=== PATIENT | female | born 1980 | race Caucasian/White ===

== ENCOUNTER → 2020-01-05 | Outpatient (CLI) | payer OTHER ==
[~2020-01-05] VITALS: Ht 165.1 cm; Wt 74.8 kg
[~2020-01-05] MED LIST: AEROECLIPSE1 EACH MC; ALBUTEROL2.5 MG/0.5 IH; ALBUTEROL2.5 MG/31 INH; ALPRAZOLAM 0.50.5 MG PO; ATENOLOL 50MG T50 M1 PO; BYSTOLIC 5 MG5 M1; CARAFATE 1 GM TA1 G1 PO; CELEXA40 MG PO; CHLORZOXAZONE500 MG PO; CYMBALTA30 MG PO; DICLOFENAC SODI75 MG PO; DILAUDID 2 MG TA2 MG PO; DIOVAN40 MG PO; DOXYCYCLINE 10100 MG PO; DULERA 200 MCG/13 GM; FLEXERIL PO; GABAPENTIN 100100 MG PO; IMITREX100 MG PO; LOSARTAN POTAS100 MG PO; LOSARTAN-HCTZ1 EAC3 PO; MEDROLDOSEPACK PO; MUCINEX DM TABL1 TA1 PO; MULTIVITAMINS1 EAC7 PO; NORCO 5-325 TA1 EAC1 PO; NORVASC5 MG PO; OMEPRAZOLE 20 M20 M1; OXYCONTIN10 M1; PREDNISONE 20 M20 M1 PO; PROAIR HFA8.5 GM INH; PROAIR HFA8.5 GM PO; PROCARE1 EACH MC; PROTONIX40 M1 PO; ROBAXIN 750 MG750 M1 PO; SENOKOT-S1 TA2 PO; SYNTHROID150 MCG PO; TESSALON PERLE100 M1 PO; TRAZODONE HCL50 MG PO; TUSSIONEX PENN473 ML PO; VENTOLIN HFA 1818 GM; VERAPAMIL ER240 M1 PO; ZANAFLEX4 MG; ZOLOFT50 MG PO; ZPAK PO; ZYRTEC10 M2
[2020-01-05 08:40] VITALS: BP 116/62
[2020-01-05 09:01] LABS: HEMATOCRIT 46.3 % (37.0-47.0); HEMOGLOBIN 15.6 gm/dL (12.0-15.0); MCH 29.7 pg (26.0-34.0); MCHC 33.7 g/dL (28.0-37.0); MCV 88.1 fL (80.0-100.0); MPV 7.3 fl. (7.2-11.1); RBC 5.26 mil/uL (4.20-5.00); RDW-CV 13.5 % (10.5-14.5); WBC 8.7 thou/uL (4.0-11.0)
[2020-01-05 09:11] LABS: CALCIUM 9.4 mg/dL (8.5-10.1); CREATININE 0.7 mg/dL (0.6-1.3); POTASSIUM 4.4 mmol/L (3.5-5.1)
[2020-01-05 09:13] LABS: PROTIME 10.4 Seconds (9.20-11.50)
[2020-01-05 10:35] VITALS: BP 100/55
[2020-01-05 10:49] VITALS: BP 103/54
[2020-01-05 11:06] VITALS: BP 97/52
--- NOTE | 2020-01-06 13:09 | NUR ---
Patient came in today and received a pain prescription from Dr. Babin and no area of infection noted.
== END | disposition home or self-care (01) ==
LOC: M.INT 08:04
PROVIDERS: Radiology Diagnostic Radiology; ATTEND Internal Medicine Hematology & Oncology
DX: Z45.2 Encounter for adjustment and management of vascular access device (principal); C34.90 Malignant neoplasm of unspecified part of unspecified bronchus or lung; I10 Essential (primary) hypertension; E78.00 Pure hypercholesterolemia, unspecified; J45.909 Unspecified asthma, uncomplicated; G43.909 Migraine, unspecified, not intractable, without status migrainosus; F32.9 Major depressive disorder, single episode, unspecified; F41.9 Anxiety disorder, unspecified; F17.210 Nicotine dependence, cigarettes, uncomplicated; Z98.890 Other specified postprocedural states; Z11.59 Encounter for screening for other viral diseases; Z79.899 Other long term (current) drug therapy; Z98.84 Bariatric surgery status; Z85.850 Personal history of malignant neoplasm of thyroid; Z86.2 Personal history of diseases of the blood and blood-forming organs and certain disorders involving the immune mechanism; Z87.442 Personal history of urinary calculi; Z88.2 Allergy status to sulfonamides; Z88.8 Allergy status to other drugs, medicaments and biological substances

== ENCOUNTER 2020-06-15 14:01 | Emergency (ER) | payer OTHER ==
[~2020-06-15] VITALS: Ht 167.6 cm; Wt 90.7 kg
[2020-06-15] MEDS ORDERED: ATIVAN1 M1 PO (14:14)
[2020-06-15] MEDS ORDERED: FENTANYL1 EAC1 TOP (14:14)
[2020-06-15] MEDS ORDERED: NORCO 5-325 TA1 EAC2 PO (14:15)
[2020-06-15 14:31] LABS: ABSOLUTE BASOPHILS 0.1 thou/uL (0.0-0.2); ABSOLUTE EOSINOPHILS 0.1 thou/uL (0.0-0.7); ABSOLUTE LYMPHOCYTES 1.5 thou/uL (0.8-5.3); ABSOLUTE MONOCYTES 0.4 thou/uL (0.0-1.2); ABSOLUTE NEUTROPHILS 4.6 thou/uL (1.6-8.1); BASOPHILS 1.3 %; EOSINOPHILS 1.2 %; HEMATOCRIT 43.3 % (37.0-47.0); HEMOGLOBIN 14.6 gm/dL (12.0-15.0); LYMPHOCYTES 22.1 %; MCH 30.9 pg (26.0-34.0); MCHC 33.7 g/dL (28.0-37.0); MCV 91.6 fL (80.0-100.0); MONOCYTES 5.8 %; MPV 6.7 fl. (7.2-11.1); NUCLEATED RBCS 0 /100WBC; PLATELET COUNT* 238 thou/uL (150-400); POLYS 69.6 %; RBC 4.73 mil/uL (4.20-5.00); RDW-CV 17.3 % (10.5-14.5); WBC 6.6 thou/uL (4.0-11.0)
[2020-06-15 14:50] LABS: APTT 26.9 Seconds (25.0-31.3); PROTIME 10.5 Seconds (9.20-11.50)
[2020-06-15 15:10] LABS: CALCIUM 8.8 mg/dL (8.5-10.1); POTASSIUM 3.8 mmol/L (3.5-5.1)
[2020-06-15 15:25] LABS: TOTAL BILIRUBIN 0.8 mg/dL (<0.1-1.0); TOTAL PROTEIN 7.8 g/dL (6.4-8.2)
[2020-06-15] MEDS ORDERED: PROAIR HFA8.5 GM INH (18:24)
[2020-06-15 18:56] VITALS: BP 130/70
--- NOTE | 2020-06-17 12:42 | EKG ---
[place] [address] ELECTROCARDIOGRAM REPORT Name: KARIN EATON Room: [facility]#: [id number] Admission: 06/15/20 Attend Phys: Discharge: 06/15/20 Date of : 78 Date of Service: 06/15/20 1425 Report #: [id number] THIS REPORT FOR: //name// [facility] ED Test Date: 2020-06-15 Test Time: 14:25:38 Pat Name: KARIN EATON Department: Room: Gender: System Integration Engineer: TDS : 1980 Requested By: Jacques Anna Order Number: [id number] MD: David Crisostomo Measurements Intervals [place] Rate: 54 P: 37 MD: 167 QRS: -37 QRSD: 120 T: 8 QT: 557 QTc: 528 Interpretive Statements Sinus rhythm Nonspecific IVCD with LAD Inferior infarct, old Delayed R wave progression Baseline wander in lead(s) II,V2 Compared to ECG 05/04/2015 21:47:20 Intraventricular conduction delay now present Myocardial infarct finding now present Electronically Signed On 06-17-2020 12:42:13 AMPOULE FILLER by David Crisostomo [email or web address] <ELECTRONICALLY SIGNED> By: David Crisostomo MD, FACC 06/17/20 1242 1425 1425 David Crisostomo MD, FACC /EPI
== END 2020-06-15 18:56 | disposition home or self-care (01) ==
LOC: M.ERS 14:01
PROVIDERS: Emergency Medicine Emergency Medical Services
DX: R06.02 Shortness of breath (principal); Z20.828 Contact with and (suspected) exposure to other viral communicable diseases; I10 Essential (primary) hypertension; E78.00 Pure hypercholesterolemia, unspecified; G43.909 Migraine, unspecified, not intractable, without status migrainosus; F17.210 Nicotine dependence, cigarettes, uncomplicated; Z88.2 Allergy status to sulfonamides; Z88.8 Allergy status to other drugs, medicaments and biological substances; Z98.890 Other specified postprocedural states; Z86.2 Personal history of diseases of the blood and blood-forming organs and certain disorders involving the immune mechanism; Z87.442 Personal history of urinary calculi; Z85.850 Personal history of malignant neoplasm of thyroid